=== PATIENT | female | born 1955 | race Caucasian/White ===

== ENCOUNTER 2017-02-24 13:18 | Emergency (ER) | payer OTHER ==
[~2017-02-24] VITALS: Ht 160 cm; Wt 53.8 kg
[2017-02-24 14:59] LABS: BLOOD UREA NITROGEN 22 mg/dL (7-18)
[2017-02-24 16:32] VITALS: BP 151/90
== END 2017-02-24 16:36 | disposition home or self-care (01) ==
LOC: ED 16:22
DX: R42 Dizziness and giddiness (principal); I10 Essential (primary) hypertension
CPT/HCPCS: 36415; 70450; 80048; 81003; 82040; 85025; 93005; 99285

== ENCOUNTER → 2017-02-27 | Outpatient (CLI) | payer OTHER | END | disposition home or self-care (01) | LOC: RAD 16:04 | PROVIDERS: ATTEND Family Medicine | DX: C79.51 Secondary malignant neoplasm of bone (principal); C50.919 Malignant neoplasm of unspecified site of unspecified female breast; M47.892 Other spondylosis, cervical region | CPT/HCPCS: 77075 ==

== ENCOUNTER → 2017-03-07 | Outpatient (CLI) | payer OTHER | END | disposition home or self-care (01) | LOC: CFH 08:22 | PROVIDERS: ATTEND Family Medicine | DX: R10.9 Unspecified abdominal pain (principal) | CPT/HCPCS: 76700 ==

== ENCOUNTER → 2017-03-09 | Outpatient (CLI) | payer OTHER ==
[~2017-03-09] MED LIST: GADOBUTROL 7.5 MMOL/7.5 ML VIAL ONE
== END | disposition home or self-care (01) ==
LOC: CFH 14:18
PROVIDERS: ATTEND Family Medicine
DX: Z13.820 Encounter for screening for osteoporosis (principal); M81.0 Age-related osteoporosis without current pathological fracture; J32.3 Chronic sphenoidal sinusitis; M89.8X8 Other specified disorders of bone, other site; Z85.3 Personal history of malignant neoplasm of breast
CPT/HCPCS: 70553; 77080; A9585

== ENCOUNTER → 2017-03-14 | Outpatient (CLI) | payer OTHER | END | disposition home or self-care (01) | LOC: PETCFH 13:21 | PROVIDERS: ATTEND Specialist | DX: C50.912 Malignant neoplasm of unspecified site of left female breast (principal) | CPT/HCPCS: 78815; A9552 ==

== ENCOUNTER 2017-05-08 13:45 | Emergency (ER) | payer OTHER ==
[~2017-05-08] VITALS: Ht 160 cm; Wt 54.3 kg
[2017-05-08] MEDS ORDERED: SODIUM CHLORIDE FLUSH 10ML SYR IVF ONE (14:00)
[2017-05-08] MEDS ORDERED: ASPIRIN 81 MG TABLET CHEW PO ONE (14:00)
[2017-05-08] MEDS ORDERED: MORPHINE SULFATE 4 MG/ML, 1ML IVPush PRN (14:00)
[2017-05-08] MEDS ORDERED: ONDANSETRON 2MG/ML, 2ML IVPush ONE (14:00)
[2017-05-08] MEDS ORDERED: ONDANSETRON 2MG/ML, 2ML ONE (14:37)
[2017-05-08] MEDS ORDERED: MORPHINE SULFATE 4 MG/ML, 1ML ONE (14:37)
[2017-05-08] MEDS ORDERED: ASPIRIN 81 MG TABLET CHEW ONE (14:38)
[2017-05-08 14:40] LABS: HEMATOCRIT 45.8 % (34.6-47.8); HEMOGLOBIN 15.6 g/dL (11.7-16.4); WHITE BLOOD COUNT 6.4 x10^3/uL (3.4-10)
[2017-05-08 14:52] LABS: BLOOD UREA NITROGEN 16 mg/dL (7-18)
[2017-05-08 14:57] LABS: IS PT STATUS REG ER OR PRE ER? YES
[2017-05-08] MEDS ORDERED: SODIUM CHLORIDE 0.9%, 500ML IVBOLUS ONE (15:00)
[2017-05-08] MEDS ORDERED: ENALAPRILAT 1.25 MG/ML, 2ML ONE (15:37)
[2017-05-08] MEDS ORDERED: LORazepam 2 MG/ML, 1ML ONE (15:39)
[2017-05-08] MEDS ORDERED: LORazepam 2 MG/ML, 1ML IVPush ONE (16:00)
[2017-05-08] MEDS ORDERED: ENALAPRILAT 1.25 MG/ML, 2ML IV ONE (16:00)
[2017-05-08 16:04] VITALS: BP 132/88
== END 2017-05-08 16:15 | disposition home or self-care (01) ==
LOC: ED 16:14
DX: E86.0 Dehydration (principal); I10 Essential (primary) hypertension
CPT/HCPCS: 36415; 71010; 80048; 82040; 83735; 83880; 84443; 84484; 85025; 93005; 96361; 96374; 96375; 99285; J2060; J7040